=== PATIENT | male | born 1965 | race Caucasian/White ===

== ENCOUNTER 2024-12-14 17:40 | Emergency (ER) | payer OTHER ==
[~2024-12-14] VITALS: Ht 175.3 cm; Wt 85.8 kg
[2024-12-14] MEDS ORDERED: LANTINJ4 SC (17:55)
[2024-12-14] MEDS ORDERED: SEMA0.257 SQ (17:55)
[2024-12-14] MEDS ORDERED: LOSA25TA13 (17:55)
[2024-12-14] MEDS ORDERED: METF10004 PO (17:55)
[2024-12-14] MEDS ORDERED: JARD1TAB3 PO (17:56)
[2024-12-14] MEDS ORDERED: ATOR1TAB19 PO (17:57)
[2024-12-14] MEDS ORDERED: OMEP10CASR PO (17:57)
[2024-12-14 20:15] VITALS: BP 132/83; TEMP 97.1; O2SAT 100
== END 2024-12-14 21:19 | disposition home or self-care (01) ==
LOC: M ED 17:40
DX: R22.41 Localized swelling, mass and lump, right lower limb (principal); I10 Essential (primary) hypertension; Z86.718 Personal history of other venous thrombosis and embolism; Z88.0 Allergy status to penicillin

== ENCOUNTER → 2025-01-24 | Outpatient (CLI) | payer OTHER ==
[~2025-01-24] MED LIST: ATOR1TAB19 PO; JARD1TAB3 PO; LANTINJ4 SC; LOSA25TA13; METF10004 PO; OMEP10CASR PO; SEMA0.257 SQ
== END ==
LOC: M RAD 10:14
PROVIDERS: ATTEND Nurse Practitioner Family
DX: R93.89 Abnormal findings on diagnostic imaging of other specified body structures (principal)